=== PATIENT | female | born 1975 | race Caucasian/White ===

== ENCOUNTER 2017-09-11 09:42 | Outpatient (CLI) | payer BC | END 2017-09-11 09:43 | disposition home or self-care (01) | LOC: BICRAD 09:42 | PROVIDERS: ATTEND Chiropractor | DX: M16.0 Bilateral primary osteoarthritis of hip (principal) ==

== ENCOUNTER 2024-03-31 10:45 | Outpatient (CLI) | payer BC | END 2024-03-31 10:46 | disposition home or self-care (01) | LOC: SCSMRI 10:45 | PROVIDERS: ATTEND Orthopaedic Surgery | DX: S76.302A Unspecified injury of muscle, fascia and tendon of the posterior muscle group at thigh level, left thigh, initial encounter (principal); S76.812A Strain of other specified muscles, fascia and tendons at thigh level, left thigh, initial encounter; M67.88 Other specified disorders of synovium and tendon, other site; M24.852 Other specific joint derangements of left hip, not elsewhere classified | CPT/HCPCS: 72195 ==